=== PATIENT | female | born 1995 | race Caucasian/White ===

== ENCOUNTER 2017-11-04 09:38 | Emergency (ER) | payer BC ==
--- NOTE | 2017-11-04 09:47 | EDPHY ---
H & P Time Seen by Provider: 11/04/17 09:47 Constitutional: Initial Vital Signs Temperature (C) 37.0 C 11/04/17 09:49 Heart Rate 79 11/04/17 09:49 Respiratory Rate 16 11/04/17 09:49 Blood Pressure 130/80 H 11/04/17 09:49 O2 Sat (%) 96 11/04/17 09:49 O2 Delivery Mode Room Air Allergies/Adverse Reactions: acetaminophen [From Percocet] Allergy (Verified 11/04/17 09:47) metoclopramide [From Reglan] Allergy (Verified 11/04/17 09:49) oxycodone [From Percocet] Allergy (Verified 11/04/17 09:47) sumatriptan Allergy (Verified 11/04/17 09:49) Home Medications: Medication Instructions Recorded Cimzia 11/04/17 Medical Decision Making ED Course/Re-evaluation: CHIEF COMPLAINT: Dehydrated HISTORY OF PRESENT ILLNESS: The patient is a 22 y/o female with a history of Crohn's disease complaining of dehydration and nausea. Yesterday, she flew into the [facility] from [place]. She has a history of airsickness. This is her first time at altitude. She started vomiting on the flight and noticed some diarrhea in her ostomy bag. She has had difficulty keeping food and liquids down since then. She has associated nausea and tachypnea on exertion. She reports she has had dehydration before treated with IV fluids. This episode feels no different than previous episodes. She denies any other associated symptoms. REVIEW OF SYSTEMS: A 10 point review of systems was performed and is negative with the exception of the elements mentioned in the history of present illness. PHYSICAL EXAM: HR, BP, O2 Sat, RR. Temp noted General Appearance: Alert, well hydrated, appropriate, and non-toxic appearing. Head: Atraumatic without scalp tenderness or obvious injury Eyes: Pupils equal, round, reactive to light and accommodation, EOMI, no trauma , no injection. Ears: Clear bilaterally, no perforation, normal landmarks Nose: Atraumatic, no rhinorrhea, clear. Throat: There is no erythema or exudates, no lesions, normal tonsils, mucus membranes moist. Neck: Supple, nontender, no lymphadenopathy. Respiratory: No retractions, no distress, no wheezes, and no accessory muscle use. Cardiovascular: Regular rate and rhythm, no murmurs, rubs, or gallops. Gastrointestinal: Abdomen is soft, nontender, non-distended, no masses, no rebound, no guarding, no peritoneal signs. Musculoskeletal: Normal active ROM of all extremities, atraumatic. Neurological: Alert, appropriate, and interactive. Skin: No rashes, good turgor, no nodules on palpation. Past medical history: Crohn's disease Past surgical history: Ostomy Family history: Non-contributory Social history: From [place], visiting , nonsmoker DIFFERENTIAL DIAGNOSIS: The differential diagnosis for the patient's nausea and vomiting included but was not limited to gastroenteritis, gastritis, appendicitis, and medication side effect. MEDICAL DECISION MAKING: The patient presents with nausea, vomiting, and diarrhea. She also feels she is dehydrated. She began to feel ill on the flight to [place]. She has had difficulty keeping food and liquids down since. She states when this has happened previously she has had IV fluids and improved. Exam is normal. Plan for 2 L NS fluid, 4 mg Zofran, and iSTAT to check for electrolyte abnormalities. 11:15 AM - The patient's labs are normal. She feels much better and is doing an oral challenge. She is able to leave once she passes the oral challenge. - Data Points Laboratory Results: 11/04/17 10:04 POC Hgb 12.9 gm/dL gm/dL (12.6-16.3) POC Hct 38 % % (38-47) POC Sodium 140 mEq/L mEq/L (135-145) POC Potassium 3.2 mEq/L L mEq/L (3.3-5.0) POC Chloride 101 mEq/L mEq/L (97-110) POC BUN 8 mg/dL mg/dL (7-23) POC Creatinine 0.8 mg/dL mg/dL (0.6-1.0) POC Glucose 94 mg/dL mg/dL (70-100) Medications Given: Discontinued Medications Sodium Chloride (Ns) 1,000 mls @ 0 mls/hr IV ONCE ONE; Wide Open PRN Reason: Protocol Stop: 11/04/17 09:53 Last Admin: 11/04/17 10:01 Dose: 1,000 mls Sodium Chloride (Ns) 1,000 mls @ 0 mls/hr IV ONCE ONE; Wide Open PRN Reason: Protocol Stop: 11/04/17 09:53 Last Admin: 11/04/17 10:03 Dose: 1,000 mls Ondansetron HCl (Zofran) 4 mg IVP EDNOW ONE Stop: 11/04/17 09:53 Last Admin: 11/04/17 09:59 Dose: 4 mg Point of Care Test Results: Chemistry 11/04/17 10:04 POC Sodium 140 mEq/L mEq/L (135-145) POC Potassium 3.2 mEq/L L mEq/L (3.3-5.0) POC Chloride 101 mEq/L mEq/L (97-110) POC BUN 8 mg/dL mg/dL (7-23) POC Creatinine 0.8 mg/dL mg/dL (0.6-1.0) POC Glucose 94 mg/dL mg/dL (70-100) ISTAT H&H 11/04/17 10:04 POC Hgb 12.9 gm/dL gm/dL (12.6-16.3) POC Hct 38 % % (38-47) Departure - Departure Disposition: Home, Routine, Self-Care Clinical Impression: Dehydration Condition: Good Instructions: Dehydration (ED) Additional Instructions: 1. Consume gatorade or other sports drinks as tolerated. You can also have boom satinder or chicken stock. Introduce bland food as tolerated. [place] foods include bananas, toast, rice, and applesauce. Add other foods as tolerated. 2. Follow up with your primary care provider if symptoms continue. You can see Dr. Mars if you need while here. 3. Return to the emergency department for any worsening of condition. Referrals: Zina Mars MD [Medical Doctor] - As per Instructions Report Scribed for: Oleg Mayers Report Scribed by: Rosa Munoz Date of Report: 11/04/17 Time of Report: 10:26
[2017-11-04] MEDS ORDERED: NS 1,000 ML IV ONE (09:52)
[2017-11-04] MEDS ORDERED: ONDANSETRON 4 MG/2 ML VIAL IVP ONE (09:52)
[2017-11-04] MEDS: NS 1,000 ML IV ONE ×2 (09:58→10:01)
[2017-11-04 11:44] VITALS: BP 97/48
== END 2017-11-04 11:50 | disposition home or self-care (01) ==
DX: E86.0 Dehydration (principal)
CPT/HCPCS: 82435-PO; 82565-PO; 82947-PO; 84132-PO; 84295-PO; 84520-PO; 85014-PO; 96374; J2405

== ENCOUNTER 2017-11-06 10:03 | Emergency (ER) | payer BC ==
[2017-11-06] MEDS ORDERED: NS 1,000 ML IV ONE (10:42)
[2017-11-06] MEDS ORDERED: MAGNESIUM SULF 1 GM/DEXTROSE 100 ML IV ONE (10:43)
[2017-11-06 10:47] LABS: PLATELET COUNT 251 10^3/uL (150-400)
--- NOTE | 2017-11-06 11:58 | EDPHY ---
H & P Smoking Status: Never smoked Time Seen by Provider: 11/06/17 10:31 HPI/ROS: CHIEF COMPLAINT: Nausea and dehydration HISTORY OF PRESENT ILLNESS: Patient is a 22-year-old female with a history of Crohn's disease here from [facility]. 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 On the plane ride here she developed severe nausea. She has an ostomy in her output has been normal and not watery or bloody. Does not have any abdominal pain. She has had no fever. She said no hematemesis. She was seen here in the ER and given IV hydration 2 days ago and felt improved. She returns today requesting IV hydration again. She is flying home tomorrow to see her surgeon. REVIEW OF SYSTEMS: Constitutional: No fever, no chills. Eyes: No discharge. ENT: No sore throat. Cardiovascular: No chest pain, no palpitations. Respiratory: No cough, no shortness of breath. Gastrointestinal: No abdominal pain, no vomiting. Genitourinary: No hematuria. Musculoskeletal: No back pain. Skin: No rashes. Neurological: No headache. (Abdelrahman Mckeon) Physical Exam: General Appearance: Alert and no distress. Eyes: Pupils equal and round no injection. Respiratory: Chest is nontender, lungs are clear to auscultation. Cardiac: regular rate and rhythm. Gastrointestinal: Abdomen is soft and nontender, no masses, bowel sounds normal. Musculoskeletal: Neck is supple and nontender. Extremities have full range of motion and are nontender. Skin: No rashes or lesions. (Abdelrahman Mckeon) Constitutional: Initial Vital Signs Temperature (C) 37.0 C 11/06/17 10:12 Heart Rate 96 11/06/17 10:12 Respiratory Rate 18 11/06/17 10:12 Blood Pressure 138/88 H 11/06/17 10:12 O2 Sat (%) 95 11/06/17 10:12 O2 Delivery Mode Room Air Allergies/Adverse Reactions: diphenhydramine [From Benadryl] Allergy (Verified 11/06/17 10:14) metoclopramide [From Reglan] Allergy (Verified 11/04/17 09:49) morphine Allergy (Verified 11/06/17 10:14) oxycodone [From Percocet] Allergy (Verified 11/04/17 09:47) sumatriptan Allergy (Verified 11/04/17 09:49) Home Medications: Medication Instructions Recorded Cimzia 11/04/17 Ondansetron [Zofran Odt] 4 mg PO Q8HRS #16 tab.rapdis 11/06/17 Medical Decision Making ED Course/Re-evaluation: 22-year-old female with a history of Crohn's disease with ostomy here concern for dehydration. Her lab show no clinical evidence of dehydration she is not has no evidence of leukocytosis or renal failure. She was given 1 L IV fluid and magnesium for her headache. She does feel slightly improved and stable for discharge. She refused antiemetic medication. She was given a prescription for Zofran which she will fill as needed. She is flying home this evening to see her surgeon tomorrow morning in [facility]. (Abdelrahman Mckeon) Differential Diagnosis: Renal failure, intra-abdominal bleed, diverticulitis, appendicitis (Abdelrahman Mckeon) Other Provider: The patient was evaluated and managed by the Physician [employer]. My co- signature indicates that I have reviewed this chart and I agree with the findings and plan of care as documented. I am the secondary supervising physician. ([place]) - Data Points Laboratory Results: Laboratory Results 11/06/17 10:32 11/06/17 10:32 11/06/17 11/06/17 11/06/17 10:32 10:32 10:32 WBC 6.76 10^3/uL 10^3/uL (3.80-9.50) RBC 4.09 10^6/uL L 10^6/uL (4.18-5.33) Hgb 12.2 g/dL L g/dL (12.6-16.3) Hct 36.6 % L % (38.0-47.0) MCV 89.5 fL fL (81.5-99.8) MCH 29.8 pg pg (27.9-34.1) MCHC 33.3 g/dL g/dL (32.4-36.7) RDW 13.0 % % (11.5-15.2) Plt Count 251 10^3/uL 10^3/uL (150-400) MPV 10.0 fL fL (8.7-11.7) Neut % (Auto) 66.4 % % (39.3-74.2) Lymph % (Auto) 20.3 % % (15.0-45.0) [place] % (Auto) 9.0 % % (4.5-13.0) Eos % (Auto) 3.0 % % (0.6-7.6) Baso % (Auto) 1.0 % % (0.3-1.7) Nucleat RBC Rel Count 0.0 % % (0.0-0.2) Absolute Neuts (auto) 4.49 10^3/uL 10^3/uL (1.70-6.50) Absolute Lymphs (auto) 1.37 10^3/uL 10^3/uL (1.00-3.00) Absolute Monos (auto) 0.61 10^3/uL 10^3/uL (0.30-0.80) Absolute Eos (auto) 0.20 10^3/uL 10^3/uL (0.03-0.40) Absolute Basos (auto) 0.07 10^3/uL 10^3/uL (0.02-0.10) Absolute Nucleated RBC 0.00 10^3/uL 10^3/uL (0-0.01) Immature Gran % 0.3 % % (0.0-1.1) Immature Gran # 0.02 10^3/uL 10^3/uL (0.00-0.10) Sodium 138 mEq/L mEq/L (135-145) Potassium 3.6 mEq/L mEq/L (3.3-5.0) Chloride 105 mEq/L mEq/L (97-110) Carbon Dioxide 23 mEq/l mEq/l (22-31) Anion Gap 10 mEq/L mEq/L (8-16) BUN 7 mg/dL mg/dL (7-23) Creatinine 0.8 mg/dL mg/dL (0.6-1.0) Estimated GFR > 60 Glucose 79 mg/dL mg/dL (70-100) Calcium 9.1 mg/dL mg/dL (8.5-10.4) Beta HCG, Qual NEGATIVE Medications Given: Discontinued Medications Sodium Chloride (Ns) 1,000 mls @ 0 mls/hr IV EDNOW ONE; Wide Open PRN Reason: Protocol Stop: 11/06/17 10:43 Last Admin: 11/06/17 11:02 Dose: 1,000 mls Magnesium Sulfate/Dextrose (Magnesium Sulf 1 Gm (Premix)) 100 mls @ 100 mls/hr IV EDNOW ONE Stop: 11/06/17 11:42 Last Admin: 11/06/17 11:03 Dose: 100 mls Departure - Departure Disposition: Home, Routine, Self-Care Clinical Impression: Headache Condition: Good Instructions: Acute Nausea and Vomiting (ED) Additional Instructions: Please follow up tomorrow morning with your surgeon in [facility]. Return to the ER for any worsening or worrisome symptoms. Referrals: OLIVIA IBRAHIM [Other] - As per Instructions Prescriptions: Ondansetron [Zofran Odt] 4 mg PO Q8HRS #16 tab.agueda
[2017-11-06 12:04] VITALS: BP 107/79
== END 2017-11-06 12:09 | disposition home or self-care (01) ==
DX: R51 Headache (principal); E86.9 Volume depletion, unspecified
CPT/HCPCS: 96365; J3475